=== PATIENT | female | born 1985 | race Caucasian/White ===

== ENCOUNTER 2016-12-20 13:16 | Day surgery (SDC) | payer OTHER ==
--- NOTE | ~2016-12-20 | EGD ---
EGD REPORT [facility] [address] [place]. [address] NAME: CA BENÍTEZ : 87 STATUS : REG [facility]#: [id number] AGE: 31 ADM/REG DATE : 12/20/16 MR#: [id number] REPORT SERV DATE: 12/20/16 DICTATED BY: RITA STATON DATE: 12/20/16 REPORT STATUS : Draft TRANSCRIBED BY: [facility] DATE: 12/20/16 Endoscopy Center Patient Name: Ca Benítez Date of : 1985 Attending MD: EDGAR STATON MD Procedure Date No Time: 12/20/2016 Procedure: Upper GI endoscopy Indications: Nausea Referring MD: KLEBER Fragoso Medicines: See the Anesthesia note for documentation of the administered medications Complications: No immediate complications. Estimated blood loss: None. Procedure: Pre-Anesthesia Assessment: - ASA Grade Assessment: II - A patient with mild systemic disease. - Prior to the procedure, a History and Physical was performed, and patient medications and allergies were reviewed. The patient's tolerance of previous anesthesia was also reviewed. The risks and benefits of the procedure and the sedation options and risks were discussed with the patient. All questions were answered, and informed consent was obtained. Prior Anticoagulants: The patient has taken no previous anticoagulant or antiplatelet agents. After reviewing the risks and benefits, the patient was deemed in satisfactory condition to undergo the procedure. After obtaining informed consent, the endoscope was passed under direct vision. Throughout the procedure, the patient's blood pressure, pulse, and oxygen saturations were monitored continuously. The GIF [id number] was introduced through the mouth, and advanced to the second part of duodenum. The upper GI endoscopy was accomplished without difficulty. The patient tolerated the procedure well. Findings: The examined duodenum was normal. A small hiatus hernia was present. No other significant abnormalities were identified in a careful examination of the stomach. The examined esophagus was normal. Impression: - Normal examined duodenum. - Hiatus hernia. - Normal esophagus. EGD REPORT [address] [address] NAME: CA BENÍTEZ : 87 STATUS : REG [facility]#: [id number] AGE: 31 ADM/REG DATE : 12/20/16 MR#: [id number] REPORT SERV DATE: 12/20/16 DICTATED BY: RITA STATON DATE: 12/20/16 REPORT STATUS : Draft TRANSCRIBED BY: [employer] [facility] DATE: 12/20/16 Recommendation: - Patient has a contact number available for emergencies. The signs and symptoms of potential delayed complications were discussed with the patient. Return to normal activities tomorrow. Written discharge instructions were provided to the patient. - Regular diet. - Discharge patient to home. - Continue present medications. Procedure Code(s): --- Professional --- 18054, Esophagogastroduodenoscopy, flexible, transoral; diagnostic, including collection of specimen(s) by brushing or washing, when performed (separate procedure) Diagnosis Code(s): --- Professional --- K44.9, Diaphragmatic hernia without obstruction or gangrene R11.0, Nausea CPT copyright 2013 [employer]. All rights reserved. The codes documented in this report are preliminary and upon director of home health services review may be revised to meet current compliance requirements. EDGAR STATON MD 12/20/2016 4:02 PM This report has been signed electronically. Number of Addenda: 0 Note Initiated On: 12/20/2016 3:29 PM Scope Withdrawal Time 0 hours 0 minutes 0 seconds [address] [id number]
[~2016-12-20 13:16] MED LIST: GLUCOPHXR7 PO; YASMIN BCP
== END 2016-12-20 23:59 | disposition home or self-care (01) ==
LOC: DMU 13:16
PROVIDERS: Internal Medicine Gastroenterology
PROC: 0DJ08ZZ Inspection of Upper Intestinal Tract, Via Natural or Artificial Opening Endoscopic (ICD-10-PCS; principal; 2016-12-20 14:30)
DX: K44.9 Diaphragmatic hernia without obstruction or gangrene (principal); E11.9 Type 2 diabetes mellitus without complications; E66.01 Morbid (severe) obesity due to excess calories; G47.30 Sleep apnea, unspecified; Z79.899 Other long term (current) drug therapy; Z88.2 Allergy status to sulfonamides; Z90.89 Acquired absence of other organs; Z98.84 Bariatric surgery status
CPT/HCPCS: 82962; 84703